=== PATIENT | female | born 1955 | race Asian ===

== ENCOUNTER 2018-12-29 09:28 | Outpatient (CLI) | payer BC ==
[2018-12-29 10:50] VITALS: BP 125/85
--- NOTE | 2018-12-29 10:50 | CONSULTATION NOTE ---
Information from patient questionnaire entered by Mireya Cardona. I have reviewed and concur with the information entered by Mireya Cardona. This document represents the service I personally performed and the decisions made by me, Morales Strickland MD, [facility]. - History of Present Illness Chief Complaint: Snoring, Fatigue, Other (previously diagnosed sleep apnea (diagnosed 12 years ago).) The patient was diagnosed with obstructive sleep apnea in [place] about 12 years ago. She has a Respironics REMStar CPAP that she uses sporadically because she sleeps in a recliner a lot. The CPAP is set at 10 cmH20. The machine does not have a memory card. She wears a full face mask. She has been purchasing supplies online. She reports significant improvement when using the CPAP. The patient tells me that she normally goes to bed around 3:00-4:00 am, and it takes her approximately 60 minutes to fall asleep. She has been told that she snores loudly and irregularly at night. She has been observed to stop breathing in her sleep. She now sleeps alone. She can recall waking up on the average of 2 times during the night. Most of the time she wakes up because of having to use the restroom. There is a lot of tossing and turning in her sleep. Generally she can recall having dreams. She usually wakes up at 11:00am-12:00pm and does not feel refreshed. She usually does not have a morning headache. During the day she complains of feeling sleepy and fatigued. She has never fallen asleep while driving nor has any accident due to sleepiness. She usually naps rarely. 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 Patient is and lives in [place]. Smoked in the past 12 months: Yes Cigarettes per day (20/pack): 10 Years of smokin Quit Date: 1999 Smoking Pack Years: 9.0 Alcohol use: Yes Caffeine use: Yes Amount and frequency: 3-4 cups/day - Family History Family history of sleep disordered breathing: Yes Family Hx Sleep Apnea: Sibling: Snoring - Review of Systems Weight loss over past 5 years: 12 Cardiovascular: reports: high blood pressure Respiratory: denies: shortness of breath, wheeze, sputum production, chronic cough, other: Gastrointestinal: reports: diarrhea Urinary: reports: incontinence Neurological: denies: headaches, seizure, head trauma, disorientation, speech dysfunction, gait or balance problems, fainting or unconsciousness, other: Psychiatric: reports: anxiety, depression Ear/Nose/Throat: reports: sinus problems, nose bleeds, dry mouth/throat Endocrine: denies: thyroid disease, history of goiter, sluggishness, too hot or cold, excessive thirst, increased appetite, increased urination, unexplained weakness, other: Musculoskeletal: reports: joint pain, neck pain Immunologic: reports: sneezing, rash - Physical Examination Vital signs obtained and documented by: Dr. Strickland Blood Pressure: 125/85 Cuff size: long Heart Rate: 58 O2 Saturation: 98 Height: 5 ft 2 in Weight (kg): 99.79 kg Body Mass Index: 40.2 BMI Classification: Class 3 Neck circumference: 16.5 Mood/affect: normal HEENT: No craniofacial malformation Nostrils: patent to airflow Turbinates: normal Septum: midline Mouth and throat: narrow oropharynx Soft palate: long Hard palate: normal Uvula: normal Tongue: enlarged in size with teeth dhillon on lateral edges Tonsils: small Chin and jaw: Retrognathia Neck: normal w/o lymphadenopathy or thyromegaly Heart: regular rate and rhythm Lungs: clear bilaterally Abdomen: soft, non-tender Extremities: 1+ edema Neurologic: intact, no focal deficits - Impression 1. Obstructive Sleep Apnea-Hypopnea Syndrome, as previously diagnosed. The severity is unknown. Because it has been 12 years, her sleep study reports are no longer available. The effectiveness of the treatment is also unknown because her old CPAP does not track residual AHI and other parameters. Narrow oropharynx and obesity are common predisposing factors for obstructive sleep apnea-hypopnea syndrome. I recommend proceeding to polysomnography to confirm the diagnosis and to assess severity. If the patient has significant sleep disordered breathing, a manual CPAP titration study will also be performed to find the optimal treatment pressure. I informed the patient of what the sleep studies involve and after some discussion, obtained agreement to proceed. The pathophysiology of obstructive sleep apnea-hypopnea syndrome was discussed with the patient and health risks of cardiovascular and cerebrovascular disease if not treated. Risks of drowsy driving discussed in detail and patient advised to avoid long distance driving and to rib puller at the first sign of drowsiness. Patient agreed to plan. - Plan Schedule polysomnography +/- manual CPAP titration study and return in 1-2 weeks after the study to discuss result and initiate therapy. The patient was instructed to not use her CPAP one night prior to the diagnostic PSG. Avoid long distance driving or driving when feeling sleepy. Avoid alcohol, sedative and muscle relaxant around bedtime. Attempt to lose weight. Review instructions provided by trained office staff on how to prepare for the sleep study. Return for follow-up after sleep studies completed. I spent 100% of this 15 minute visit face to face with the patient with greater than 50% of this was spent time counseling the patient and coordination of care.
== END 2018-12-29 09:29 | disposition home or self-care (01) ==
LOC: SC 09:28
PROVIDERS: ATTEND Internal Medicine Pulmonary Disease
DX: G47.33 Obstructive sleep apnea (adult) (pediatric) (principal)
CPT/HCPCS: 99203; 99212

== ENCOUNTER 2019-01-30 19:30 | Outpatient (CLI) | payer BC | END 2019-01-30 23:59 | disposition home or self-care (01) | LOC: SC 19:30 | PROVIDERS: ATTEND Internal Medicine Pulmonary Disease | DX: G47.33 Obstructive sleep apnea (adult) (pediatric) (principal) | CPT/HCPCS: 95806 ==

== ENCOUNTER 2019-02-23 15:34 | Outpatient (CLI) | payer BC ==
--- NOTE | 2019-02-23 16:16 | SLEEP CARE CONSULTATION ---
Information from patient questionnaire entered by Mireya Cardona. I have reviewed and concur with the information entered by Mireya Cardona. This document represents the service I personally performed and the decisions made by me, Morales Strickland MD, [facility]. History of Present Illness Reason for CPAP/BiPAP follow up: with sleep study Equipment type: CPAP Mask style: Full face Mask brand: Respironics Prior sleep studies: Yes Year and Where: 2004 in [place], 2019 [facility] HPI additional information: HPI: Ms. Steward returned for follow up of the home sleep apnea test (HSAT) she had on 01/30/2019. The test showed moderate obstructive sleep apnea-hypopnea with an AHI of 27.5 and tung oxygen saturation of 82.8%. The respiratory events occurred more frequently during supine sleep (supine AHI of 30.2). The patient was informed of these findings. Presently, she is using her CPAP sporadically. She was originally diagnosed in [place] about 12 years ago. Her autoCPAP is set between 10 20 cmH2O. She has a full face mask because her nose used to be congested. [employer] was her durable medical supplier. Subjective Patient concerns: reports: dry mouth, nose, throat, epistaxis Initial [place] Sleepiness Scale score: 9 Current [place] Sleepiness Scale score: 9 Allergies and Home Medications Drug allergies reviewed: Yes Home medication list reviewed: Yes Review of Systems Review of systems same as previous: Yes Physical Exam Height: 5 ft 2 in Weight (kg): 221 lb Weight change since last visit: 0 Body Mass Index: 40.4 BMI Classification: Class 3 Impression and Plan IMPRESSION: 1. Obstructive Sleep Apnea-Hypopnea Syndrome, moderate, associated with mild hypoxemia. The patient is using her CPAP sporadically because she occasionally sleeps in the living room. Because her CPAP is now older than the useful life of 5 years, I will order her a new one and make it an autoCPAP set between 10 and 20 cmH2O. PLAN: 1. Prescription made for an autoCPAP with heated humidifier and related supplies. 2. Attempt to lose weight. 3. Return in one month for follow up. I will assess her response and comp liance at that time. I spent 100% of the 15 minute visit [id number] with the patient with greater than 50% of this was spent time counseling the patient and coordination of care.
== END 2019-02-23 15:35 | disposition home or self-care (01) ==
LOC: SC 15:34
PROVIDERS: ATTEND Internal Medicine Pulmonary Disease
DX: G47.33 Obstructive sleep apnea (adult) (pediatric) (principal)
CPT/HCPCS: 99212; 99213

== ENCOUNTER 2019-06-02 11:10 | Outpatient (CLI) | payer BC ==
[2019-06-02 12:21] VITALS: BP 150/90
--- NOTE | 2019-06-02 12:21 | SLEEP CARE CONSULTATION ---
Information from patient questionnaire entered by Mireya Cardona. I have reviewed and concur with the information entered by Mireya Cardona. This document represents the service I personally performed and the decisions made by me, Shivani Sharpe, RN, MSN, SHEET FINISHER. History of Present Illness Previous diagnosis: Moderate, Obstructive Sleep Apnea-Hypopnea Syndrome AHI: 27.5 Reason for follow up: first compliance Equipment type: CPAP Equipment obtained from: [place] Mask style: Nasal (wisp) Mask brand: Respironics Backup mask available: No (Keep current mask as spare when replaced) Last cushion change: none since set up Prior sleep studies: Yes CPAP Compliance Data - Data Reviewed with Patient Average duration of nightly device use: 6h 11m Compliance rate %: 100 (the first 30 days then 56.7% the last 30 days) Current pressure setting (cmH2O): 10-20 Humidity settin Heated hose settin Average residual AHI: 1.4 Average large leak: 30s Subjective Missed days of use due to: reports: other (new second job and unexpected night away from home) Patient concerns: reports: dry mouth, nose, throat (mild every day ). denies: aerophagia, mask discomfort, air blowing in eyes, mask leak noise, condensation in mask/hose, nasal congestion, epistaxis Observed to snore while using device: No (single sleeps alone) Current pressure setting perceived as: comfortable On therapy, patient: reports: sleeping better, awakening more refreshed, being more awake and alert during the day, more rested overall. denies: drowsiness while driving Initial [place] Sleepiness Scale score: 9 Current [place] Sleepiness Scale score: 7 Allergies and Home Medications Known drug allergies: Yes (sensitive to celso inhibitors ) Home medication list reviewed: Yes (see list questionairre - no changes) Allergy and home medication list: Victoza Lantus metformin simvastatin Benicar aspirin claritin CoQ10 multivitamin vitamin D 3 Review of Systems Review of systems same as previous: No Physical Exam Blood Pressure: 150/90 Cuff size: long Heart Rate: 75 O2 Saturation: 98 Weight: 223 lb 3.2 oz Impression and Plan 1. Obstructive Sleep Apnea-Hypopnea Syndrome, moderate, with good treatment compliance and good apnea control the first 30days and then fell the second 30 days due to unexpected overnight work. On CPAP therapy, the patient has better sleep quality and is more rested overall. To reduce hose getting in way of sleep, I showed her a CPAP hose quiroz that can be bought online. Until then she can try the hose behind pillow or put hose through top of headgear as shown on sample mask. To improve use of CPAP when working 2nd job and unexpected night away from home, she is advised to pack her CPAP in her trunk. For mild oral dryness, she was instructed to increase the humidity as shown on sample device. Printed instructions given how and why to change settings. Patient's apnea severity and rationale for treatment to reduce apnea, improve sleep quality and reduce cardiovascular and cerebrovascular events was reviewed. I also reviewed the benefit of consistent device use of CPAP for hypertension, diabetes. 2. Elevated blood pressure, patient feels is due to recent ingestion of coffee. Patient was monitoring blood pressure at home until recent breakage of device from cat pushing it off the counter. Generally her blood pressure runs about 130-140 /80. She is advised to buy a new monitor and continue monitoring blood pressure at home. If continues to be elevated to contact her doctor for further evaluation. Risks of untreated high blood pressure reviewed and urgent follow up guidelines such as if elevated 180/100 or above. She states that her PCP advises increasing exercise but hard to incorportate. I advised to start with 5-10 minutes daily and increase weekly to goal of 30 minutes daily. * Continue CPAP pressure at 10-20 cmH2O * adjust humidity * hose quiroz * pack CPAP with 2nd job * Notify me if snoring with mask or feeling that the pressure is too much or too little * Attempt to lose weight * Call this office if any problems using CPAP * Return for follow up in 3 months, or sooner if concerns arise Time Spent with Patient (minutes): 30 I spent 100% of this visit face to face with the patient with greater than 50% of this was spent time counseling the patient and coordination of care.
== END 2019-06-02 11:11 | disposition home or self-care (01) ==
LOC: SC 11:10
PROVIDERS: ATTEND Nurse Practitioner Family
DX: G47.33 Obstructive sleep apnea (adult) (pediatric) (principal); R03.0 Elevated blood-pressure reading, without diagnosis of hypertension
CPT/HCPCS: 99212; 99214

== ENCOUNTER 2019-10-08 17:07 | Outpatient (CLI) | payer BC ==
--- NOTE | 2019-10-08 12:11 | SLEEP CARE CONSULTATION ---
Information from patient questionnaire entered by Mireya Cardona. I have reviewed and concur with the information entered by Mireya Cardona. This document represents the service I personally performed and the decisions made by me, Shivani Sharpe, RN, MSN, F[employer] ST[employer] J[employer] DEVELOPER. History of Present Illness Service Date and Time: 10/08/2019 1130 Previous diagnosis: Moderate, Obstructive Sleep Apnea-Hypopnea Syndrome AHI: 27.5 Reason for follow up: three month Equipment type: CPAP Equipment obtained from: [employer] (getting supplies as needed) Mask style: Nasal Backup mask available: Yes (old mask ) Last cushion change: month Type of Sleep Study: Home sleep study CPAP Compliance Data - Data Reviewed with Patient Average duration of nightly device use: 6h 50m Compliance rate %: 100 Current pressure setting (cmH2O): 10-20 Humidity settin Heated hose settin Average residual AHI: 1.4 Average large leak: 26s Subjective Patient concerns: denies: aerophagia, mask discomfort, air blowing in eyes, mask leak noise, condensation in mask/hose, nasal congestion, dry mouth, nose, throat, epistaxis Observed to snore while using device: No (single) Current pressure setting perceived as: comfortable On therapy, patient: reports: sleeping better, awakening more refreshed, being more awake and alert during the day, more rested overall. denies: drowsiness while driving Initial [place] Sleepiness Scale score: 9 Allergies and Home Medications Home medication list reviewed: No (no changes) Review of Systems Review of systems same as previous: Yes Physical Exam Height: 5 ft 2 in Weight: 212 lb (home weight) Body Mass Index: 38.7 BMI Classification: Obese Impression and Plan 1. Obstructive Sleep Apnea-Hypopnea Syndrome, moderate, with good treatment compliance and good apnea control. On CPAP therapy, the patient has better sleep quality and is more rested overall. The patient is pleased with benefit of treatment. The adjustment of humidity has resolved her dryness symptoms noted at her last visit. Patient is losing weight at about 2-4 pounds a month with a goal of losing about 60 more pounds. Currently patients BMI is 40.4 obesity class. Obesity increases the risk of apnea, CPAP pressure requirements and overall health risks especially cardiovascular and diabetes. I explained how significant weight loss can reduce her apnea risk and CPAP pressure requirements. The patient's CPAP pressure will be changed to 8-14 cmH2O to accommodate future weight loss. Symptoms to report for additional pressure adjustment discussed. Patient's apnea severity and rationale for treatment to reduce apnea, improve sleep quality and reduce hypertension, cardiovascular and cerebrovascular events was reviewed. I also reviewed the benefit of consistent device use of CPAP for her diabetes. * * Changeauto CPAP pressure to 8-14 cmH2O * Notify me if snoring with mask or feeling that the pressure is too much or too little * Continue to lose weight * Call this office if any problems using CPAP * Return for follow up in 6 months , or sooner if concerns arise Visit Type: Telehealth Phone (to reduce risk of Covid 19 exposure) Patient Location: Home Location of Provider: Home Patient agrees and consents to this telehealth visit type: Yes Patient agrees to have their insurance billed: Yes Time Spent with Patient (minutes): 10 Provider Statement: I spent 100% of the Telehealth Phone Call with the patient with greater than 50% spent counseling the patient and coordination of care.
== END 2019-10-08 17:08 | disposition home or self-care (01) ==
LOC: SC 17:07
PROVIDERS: ATTEND Nurse Practitioner Family
DX: G47.33 Obstructive sleep apnea (adult) (pediatric) (principal); E66.9 Obesity, unspecified

== ENCOUNTER 2020-12-21 14:58 | Outpatient (CLI) | payer MEDICARE, BC ==
--- NOTE | 2020-12-21 15:44 | SLEEP CARE CONSULTATION ---
Information from patient questionnaire entered by Sushma Nobles. I have reviewed and concur with the information entered by Sushma Nobles. This document represents the service I personally performed and the decisions made by , Xena Cheng ARNP. History of Present Illness Service Date and Time: 12/21/2020 1458 Previous diagnosis: Moderate, Obstructive Sleep Apnea-Hypopnea Syndrome AHI: 27.5 (in 2019) Reason for follow up: annual (last seen 10/2019) Equipment type: CPAP Equipment obtained from: [employer] (getting supplies as needed) Mask style: Nasal Backup mask available: Yes (old mask) Last cushion change: 2 months Prior sleep studies: Yes Year and Where: 2018 - [facility]; 2004 - in [place] Type of Sleep Study: Home sleep study HPI additional information: KEVIN GIVENS was diagnosed to have moderate, AHI 27.5, obstructive sleep apnea- hypopnea syndrome and returned today for CPAP therapy annual follow-up. CPAP Compliance Data - Data Reviewed with Patient Average duration of nightly device use: 5 hr 41 min Compliance rate %: 76.1 (180 days) Current pressure setting (cmH2O): 8-14 Humidity settin Heated hose settin Average residual AHI: 1.6 Average large leak: 1 min 36 sec Subjective Missed days of use due to: reports: other (falling asleep on couch last few months) Patient concerns: denies: aerophagia, mask discomfort, air blowing in eyes, mask leak noise, condensation in mask/hose, nasal congestion, dry mouth, nose, throat, epistaxis, other Observed to snore while using device: No Current pressure setting perceived as: comfortable On therapy, patient: reports: sleeping better, awakening more refreshed, being more awake and alert during the day, more rested overall. denies: drowsiness while driving Initial [place] Sleepiness Scale score: 9 (in 2019) Current [place] Sleepiness Scale score: 9 Allergies and Home Medications Home medication list reviewed: Yes (Jardiance 25 mg 1X day) Review of Systems Review of systems same as previous: Yes (no changes) Physical Exam Heart Rate: 69 O2 Saturation: 98 Height: 5 ft 2 in Weight: 222 lb Body Mass Index: 40.6 BMI Classification: Morbidly Obese Impression and Plan 1. Obstructive Sleep Apnea-Hypopnea Syndrome, moderate, with fair treatment compliance and good apnea control. On CPAP therapy, the patient has better sleep quality and is more rested overall. Patient was informed about the Andrea Respironics recall. She was advised to register her machine. She has not noted any black particles in the device or in the hose. She has noted over the last couple months an odor that she thought may have come from the machine but states it does not happen every night. She cleans her machine mild soap and water. Patient states she will go online, do some more research and register her machine. I discussed with her risks versus benefits of using her machine in the meantime, changing to an older device that she has at home and also getting a inline filter that she can use to reduce risks. Patient voiced understanding and will check into it. I spoke to patient about loseing weight and she states she would like to try to lose weight. Patient has been she joined [employer] to increase her exercise/activity. I encouraged her to continue to try to lose weight. Patient's apnea severity and rationale for treatment to reduce apnea, improve sleep quality and reduce cardiovascular and cerebrovascular events was reviewed. I also reviewed the benefit of consistent device use of CPAP for diabetes. * Continue auto CPAP pressure at 8-14 cmH2O * [place] her device for the Andrea Respironics recall * Notify me if snoring with mask or feeling that the pressure is too much or too little * Attempt to lose weight * Call this office if any problems using CPAP * Return for follow up in 1 year, or sooner if concerns arise Counseling Topics: Spare mask, Weight loss health impact, Activity level Visit Type: In Office Time Spent with Patient (minutes): 21 Provider Statement: I spent 100% of the Face to Face Visit with the patient with greater than 50% spent counseling the patient and coordination of care.
== END 2020-12-21 14:59 | disposition home or self-care (01) ==
LOC: SC 14:58
PROVIDERS: ATTEND Nurse Practitioner Family
DX: G47.33 Obstructive sleep apnea (adult) (pediatric) (principal); E66.01 Morbid (severe) obesity due to excess calories; Z68.41 Body mass index [BMI] 40.0-44.9, adult
CPT/HCPCS: 99212; G0463